=== PATIENT | female | born 1985 | race Caucasian/White ===

== ENCOUNTER 2016-10-07 16:21 | Inpatient (IN) | payer MEDICAID ==
[2016-10-07] VITALS (16 sets, daily range): BP systolic 101–117; BP diastolic 56–79; PULSE 70–102; RESP 18–20; TEMP 98–98.4
[~2016-10-07] VITALS: Ht 172.7 cm; Wt 79.4 kg
[~2016-10-07 16:21] MED LIST: MACR100C PO; PREN0.01 PO
[2016-10-07] MEDS ORDERED: SODIUM CHLORIDE 0.9% FLUSH 10 ML FLUSH IV FLUSH PRN (16:45)
[2016-10-07] MEDS ORDERED: ACETAMINOPHEN 325 MG TAB PO PRN (16:45)
[2016-10-07] MEDS ORDERED: ONDANSETRON ODT 4 MG TAB PO PRN (16:45)
[2016-10-07] MEDS ORDERED: ALUMINUM/MAGNESIUM/SIMETH 30 ML CUP PO PRN (16:45)
--- NOTE | 2016-10-07 17:02 | HHI.HP ---
HPI Chief Complaint 11/29 bpp Date Seen: Oct 07, 2016 Travel History International Travel<30 Days: No Contact w/Intl Traveler<30Days: No Known Affected Area: No History of Present Illness HPI 31 yo with iup at 38w2d with methadone use was seen in clinic today for testing. /bpp was 6/8 with points off for breathing. /nst was non- reactive. Pt endorses good movement. no lof/vb/reg ctx. Para: 2 : 4 : 1 History Past Medical History Narrative Medical methadone use for 3 years, prior opiate addiction started after initiation of pain management, then illegal drug use Obstetric History Obstetric History G1 09/21/10 FT iol for oligo, F, 6lb 6oz delivered at [facility] G2 02/08/13 35 wk delivery F, c/b gastroschisis, delivered at [facility] Past Surgical History Narrative Surgical tonsillectomy Family History Family History: Negative Social History Alcohol Use: No Tobacco Use: No Substance Abuse: Yes (prior opiate addiction, on methadone) Allergies-Medications (Allergen,Severity, Reaction): Coded Allergies: Penicillin (Verified Allergy, Severe, THROAT CLOSES, 02/28/03) Latex (Verified Allergy, Mild, Hives, 09/20/10) Uncoded Allergies: TOMATO (Allergy, Unknown, 02/28/03) Home Meds Active Scripts Nitrofurantoin Monohyd Macro (Macrobid)100 Mg [id number] Mg PO BID 7 Days Prov:Nelida Roque MD 03/23/16 Reported Medications Multivit/Min/Fol Ac/Iron/Pren ( Vit ( Plus)) Tab1 Tab PO DAILY 09/20/10 Review of Systems General / Constitutional: No: Fever, Weight Gain, Chills, Other Eyes: No: Diploplia, Blurred Vision, Visual changes, Pain, Photophobia HENT: No: Headaches, Vertigo, Lightheadedness Cardiovascular: No: Irregular Rhythm, Chest Pain or Discomfort, Palpitations, Tachycardia, Syncope, Varicosities, Edema, Cyanosis Respiratory: No: Cough, Short of Breath, Other Gastrointestinal: No: Nausea, Vomiting, Diarrhea Genitourinary: No: Decreased Urinary Output, Oliguria Musculoskeletal: No: Limited ROM, Weakness, Cramping, Edema, Pain Skin: No Rash, No Itching, No Dryness, No Lumps, No Change in Pigmentation, No Change in Nails, No Alopecia, No Lesions Neurologic: No: Weakness, Dizziness, Syncope, Focal Abnormalities, Coordination Problem, Headache, Slurred Speech, Seizures Psychiatric: No: Depression, Suicidal Ideations, Homicidal Ideation Endocrine: No: Heat Intolerance, Cold Intolerance, Polydipsia, Polyuria, Other Physical Exam Narrative GENERAL: Well-nourished, well-developed patient. SKIN: Warm and dry. HEAD: Normocephalic and atraumatic. EYES: No scleral icterus. No injection or drainage. ENT: No nasal drainage noted. Mucous membranes pink. Airway patent. NECK: Supple, trachea midline. No JVD. CARDIOVASCULAR: Regular rate and rhythm without murmurs, gallops, or rubs. RESPIRATORY: Breath sounds equal bilaterally. No accessory muscle use. ABDOMEN/GI: Abdomen soft, non-tender, bowel sounds present, no rebound, no guarding Gravid to 37 weeks size Fundal Height: 37 GENITOURINARY: External Genitalia: not performed in clinic today Presentation ceph Membranes: [intact Uterine Contractions: [-] FHT's: bpp 6/10, baseline 115, mod variability, no accelerations, no decelerations in office EXTREMITIES: No cyanosis or edema. BACK: Nontender without obvious deformity. No CVA tenderness. NEUROLOGICAL: Awake and alert. Motor and sensory grossly within normal limits. Five out of 5 muscle strength in all muscle groups. Normal speech. Data Data Vital Signs Reviewed: Yes Orders Place In Observation (10/07/16 ) Diet Regular Basic (10/07/16 Dinner) Vital Signs (Adult) LION.G4C-MBDBC AWAKE (10/07/16 16:37) Heart (10/07/16 16:37) Activity Bed Rest With Brp (10/07/16 16:37) Complete Blood Count With Diff (10/07/16 16:37) Basic Metabolic Panel (Bmp) (10/07/16 16:37) Hepatic Functional Panel (10/07/16 16:37) Lactated Ringer's 1000 Ml Inj (Lr 1000 M (10/07/16 16:37) Acetaminophen (Tylenol) (10/07/16 16:45) Ltouoiij-God-Pdbgo-Iron Prenat (Stuartna (10/08/16 09:00) Docusate Sodium (Colace) (10/08/16 09:00) Al-Mag Hy-Si 40-40-4 Mg/Ml Liq (Mag-Al P (10/07/16 16:45) Sodium Chloride 0.9% Flush (Ns Flush) (10/07/16 21:00) Sodium Chloride 0.9% Flush (Ns Flush) (10/07/16 16:45) Ondansetron Odt (Zofran Odt) (10/07/16 16:45) Ob/Psych Drug Screen, Urine (10/07/16 16:37) Hold Clot (10/07/16 16:37) Ferrous Sulfate (Ferrous Sulfate) (10/07/16 21:00) Assessment/Plan Assessment and Plan 31 yo with iup at 38w2d being admitted for extended monitoring s/ p non-reactive nst in office and 6/8 bpp (-2 for breathign). 1) NRFetal testing - bpp 6/10 in office, will admit for continuous monitoring. Will repeat bpp in the morning. If testing continues to be non-reassuring, will need iol. 2) /methadone use- pt did not disclose use until last week; initial uds positive for benzodiazepines,last uds positive methadone only. being seen in [facility] [place]. dose is 110mg daily, per pt 3)limited pnc- pt was not seen for 16 weeks (20wk to 36 wk) as she was in [place] with second child for medical issues.Her daughter was born with gastroschisis and has had several surgeries, and transplant. She was in pt at [facility] due to ileus, pneumonia, systemic yeast infection, and mild transplant rejection. 4) /udf - mirena pp 5) fetus- male, neg panorama screen, efw today 6 lb 10oz, ceph. Aicha Burton MD Oct 07, 2016 17:02 Aicha Burton MD Oct 07, 2016 17:02
[2016-10-07] MEDS: LACTATED RINGER'S 1000 ML INJ 1,000 ML IV SCH (17:36)
[2016-10-07 17:50] LABS: AMPHETAMINE, URINE NEG (NEG); BARBITURATES, URINE NEG (NEG); COCAINE, URINE NEG (NEG)
[2016-10-07 17:55] LABS: AUTOMATED NEUTROPHIL # 7.6 TH/MM3 (1.8-7.7); BASOPHIL % 0.2 % (0.0-2.0); EOSINOPHIL # 0.1 TH/MM3 (0-0.4); EOSINOPHIL % 0.7 % (0.0-4.0); HEMATOCRIT 31.6 % (35.0-46.0); HEMO FLAGS DIFF FINAL; LYMPH % 27.1 % (9.0-44.0); LYMPHOCYTE # 3.1 TH/MM3 (1.0-4.8); MEAN CELL VOLUME 81.7 FL (80.0-100.0); MEAN CORPUSCULAR HEMOGLOBIN 27.3 PG (27.0-34.0); MEAN CORPUSCULAR HGB CONC 33.4 % (32.0-36.0); MONO % 6.1 % (0.0-8.0); NEUT % 65.9 % (16.0-70.0); PLATELET COUNT 253 TH/MM3 (150-450); RED BLOOD COUNT 3.87 MIL/MM3 (4.00-5.30); RED CELL DISTRIBUTION WIDTH 13.6 % (11.6-17.2); WHITE BLOOD COUNT 11.5 TH/MM3 (4.0-11.0)
[2016-10-07] MEDS ORDERED: SODIUM CHLORIDE 0.9% FLUSH 10 ML FLUSH IV FLUSH SCH (21:00)
[2016-10-07 21:10] LABS: BICARBONATE 28.3 MEQ/L (21.0-32.0); INDIRECT BILIRUBIN 0.2 MG/DL (0.0-0.8); POTASSIUM 3.6 MEQ/L (3.5-5.1); TOTAL BILIRUBIN ADULT 0.3 MG/DL (0.2-1.0)
[2016-10-08] VITALS (144 sets, daily range): BP systolic 107–140; BP diastolic 56–111; PULSE 62–231; RESP 16–18; TEMP 97.4–98.3; O2SAT 99–100
[2016-10-08] MEDS: FERROUS SULFATE 325 MG (65 MG ELEMENTAL IRON) TAB PO SCH (08:39)
[2016-10-08] MEDS: DOCUSATE SODIUM 100 MG CAP PO SCH (08:39)
[2016-10-08] MEDS: MULTIVIT/MIN/PREN/FOL AC/IRON PRENATAL TAB PO SCH (08:40)
[2016-10-08] MEDS ORDERED: METHADONE HCL 10 MG TAB PO SCH (09:00)
--- NOTE | 2016-10-08 11:57 | PD.OB.ANTE ---
Subjective Interval History Chart reviewed have not met before today 39 weeks with one child with gastroschisis. Recently disclosed methadone use through [facility]. BPP in our office yesterday was 11/27 and then 01/27 today in [facility] Hep C status etc not known. Objective Vital Signs Vital Signs Date Time Temp Pulse Resp B/P Pulse Ox O2 Delivery O2 Flow Rate FiO2 10/08/16 11:10 72 10/08/16 11:05 71 10/08/16 11:00 71 10/08/16 10:55 74 10/08/16 10:50 80 10/08/16 10:45 80 10/08/16 10:40 81 10/08/16 10:35 81 10/08/16 10:30 83 10/08/16 10:25 83 10/08/16 10:20 78 10/08/16 10:15 78 10/08/16 10:10 81 10/08/16 10:05 85 100 10/08/16 10:05 84 10/08/16 10:00 78 100 10/08/16 10:00 77 10/08/16 09:55 82 100 10/08/16 09:55 83 10/08/16 09:50 77 10/08/16 09:50 77 99 10/08/16 09:45 83 100 10/08/16 09:45 82 10/08/16 09:40 83 10/08/16 09:40 82 100 10/08/16 09:35 77 100 10/08/16 09:35 78 10/08/16 09:30 81 100 10/08/16 09:30 80 10/08/16 09:25 80 10/08/16 09:20 83 10/08/16 09:15 76 10/08/16 09:00 77 10/08/16 08:55 72 10/08/16 08:50 94 10/08/16 08:45 84 10/08/16 08:35 65 10/08/16 08:25 67 10/08/16 08:20 75 10/08/16 07:44 97.5 10/08/16 07:43 16 10/08/16 07:42 66 115/63 10/08/16 07:40 63 10/08/16 07:35 65 10/08/16 07:30 67 10/08/16 07:25 63 10/08/16 07:20 63 10/08/16 07:15 65 10/08/16 07:10 72 10/08/16 07:05 62 10/08/16 07:00 66 10/08/16 05:55 73 10/08/16 04:55 77 10/08/16 03:55 75 10/08/16 03:50 16 10/08/16 03:45 79 10/08/16 02:55 74 10/08/16 02:00 18 10/08/16 01:55 82 10/08/16 00:55 82 10/07/16 23:55 72 10/07/16 23:51 98.4 10/07/16 23:51 18 10/07/16 23:51 70 101/56 10/07/16 23:50 72 10/07/16 22:55 76 10/07/16 21:56 18 10/07/16 21:55 77 10/07/16 20:55 71 10/07/16 19:55 76 10/07/16 19:33 80 104/60 10/07/16 19:32 98.0 18 10/07/16 19:30 77 10/07/16 18:55 78 10/07/16 17:55 82 10/07/16 16:58 20 10/07/16 16:58 98.3 10/07/16 16:57 89 117/79 10/07/16 16:55 102 Lab & Micro Results Test 10/07/16 10/07/16 10/07/16 16:30 17:35 20:18 Urine Opiates Screen NEG Urine Barbiturates Screen NEG Urine Amphetamines Screen NEG Urine Benzodiazepines Screen NEG Urine Cocaine Screen NEG Urine Cannabinoids Screen NEG White Blood Count 11.5 TH/MM3 Red Blood Count 3.87 MIL/MM3 Hemoglobin 10.5 GM/DL Hematocrit 31.6 % Mean Corpuscular Volume 81.7 FL Mean Corpuscular Hemoglobin 27.3 PG Mean Corpuscular Hemoglobin 33.4 % Concent Red Cell Distribution Width 13.6 % Platelet Count 253 TH/MM3 Mean Platelet Volume 8.7 FL Neutrophils (%) (Auto) 65.9 % Lymphocytes (%) (Auto) 27.1 % Monocytes (%) (Auto) 6.1 % Eosinophils (%) (Auto) 0.7 % Basophils (%) (Auto) 0.2 % Neutrophils # (Auto) 7.6 TH/MM3 Lymphocytes # (Auto) 3.1 TH/MM3 Monocytes # (Auto) 0.7 TH/MM3 Eosinophils # (Auto) 0.1 TH/MM3 Basophils # (Auto) 0.0 TH/MM3 CBC Comment DIFF FINAL Differential Comment Band and Hold HOLD CLOT IN BB Sodium Level 137 MEQ/L Potassium Level 3.6 MEQ/L Chloride Level 101 MEQ/L Carbon Dioxide Level 28.3 MEQ/L Anion Gap 8 MEQ/L Blood Urea Nitrogen 8 MG/DL Creatinine 0.77 MG/DL Estimat Glomerular Filtration 89 ML/MIN Rate Random Glucose 92 MG/DL Calcium Level 9.0 MG/DL Total Bilirubin 0.3 MG/DL Direct Bilirubin 0.1 MG/DL Indirect Bilirubin 0.2 MG/DL Aspartate Amino Transf 14 U/L (AST/SGOT) Alanine Aminotransferase 17 U/L (ALT/SGPT) Alkaline Phosphatase 238 U/L Total Protein 5.8 GM/DL Albumin 2.2 GM/DL Physical Exam GENERAL: Well-nourished, well-developed patient. CARDIOVASCULAR: Regular rate and rhythm without murmurs, gallops, or rubs. RESPIRATORY: Breath sounds equal bilaterally. No accessory muscle use. ABDOMEN/GI: Abdomen soft, non-tender. term 4/80/posterior and to patient's left EFW 7 pelvis clinically adequate EXTREMITIES: No cyanosis or edema, non-tender, without signs of DVT. Assessment and Plan Assessment and Plan 31 yo with iup at term with risk factors of intermitten care and methadone use (110 mg daily) strip reactive today however, concerns about premature again of placenta, abruptio and oligo question the rationale of conservative management and recommend delivery today. AROM and pitocin/epidural as needed Ketty Smith MD Oct 08, 2016 11:57 Assessment and Plan Assessment and Plan 31 yo with iup at term with risk factors of intermitten care and methadone use (110 mg daily) strip reactive today however, concerns about premature again of placenta, abruptio and oligo question the rationale of conservative management and recommend delivery today. Ketty Smith MD Oct 08, 2016 11:57
[2016-10-08] MEDS: LACTATED RINGER'S 1000 ML INJ 1,000 ML IV SCH (12:45)
--- NOTE | 2016-10-08 12:54 | PD.LABORPN ---
Subjective Subjective mild contactions having mild contractions every 3-5 minutes no leaking or bleeding Objective Vital Signs Vital Signs Date Time Temp Pulse Resp B/P Pulse Ox O2 Delivery O2 Flow Rate FiO2 10/08/16 12:45 82 10/08/16 12:44 76 137/72 10/08/16 12:40 87 10/08/16 12:35 94 10/08/16 12:33 18 10/08/16 12:30 90 10/08/16 12:15 100 10/08/16 12:10 86 10/08/16 12:05 84 10/08/16 12:00 69 10/08/16 11:50 77 10/08/16 11:45 80 10/08/16 11:40 75 10/08/16 11:35 73 10/08/16 11:30 77 10/08/16 11:25 77 10/08/16 11:20 73 10/08/16 11:15 78 10/08/16 11:10 72 10/08/16 11:05 71 10/08/16 11:00 71 10/08/16 10:55 74 10/08/16 10:50 80 10/08/16 10:45 80 10/08/16 10:40 81 10/08/16 10:35 81 10/08/16 10:30 83 10/08/16 10:25 83 10/08/16 10:20 78 10/08/16 10:15 78 10/08/16 10:10 81 10/08/16 10:05 85 100 10/08/16 10:05 84 10/08/16 10:00 78 100 10/08/16 10:00 77 10/08/16 09:55 82 100 10/08/16 09:55 83 10/08/16 09:50 77 10/08/16 09:50 77 99 10/08/16 09:45 83 100 10/08/16 09:45 82 10/08/16 09:40 83 10/08/16 09:40 82 100 10/08/16 09:35 77 100 10/08/16 09:35 78 10/08/16 09:30 81 100 10/08/16 09:30 80 10/08/16 09:25 80 10/08/16 09:20 83 10/08/16 09:15 76 10/08/16 09:00 77 10/08/16 08:55 72 10/08/16 08:50 94 10/08/16 08:45 84 10/08/16 08:35 65 10/08/16 08:25 67 10/08/16 08:20 75 10/08/16 07:44 97.5 10/08/16 07:43 16 10/08/16 07:42 66 115/63 10/08/16 07:40 63 10/08/16 07:35 65 10/08/16 07:30 67 10/08/16 07:25 63 10/08/16 07:20 63 10/08/16 07:15 65 10/08/16 07:10 72 10/08/16 07:05 62 10/08/16 07:00 66 10/08/16 05:55 73 10/08/16 04:55 77 Objective 5/80/posterior arom category 1 Assessment/Plan Assessment and Plan anticipate delivery maintain methadone dose notify NICU Ketty Smith MD Oct 08, 2016 12:54
[2016-10-08] MEDS ORDERED: OXYTOCIN 30 UNITS/NS 500ML PREMIX IV SCH (13:15)
[2016-10-08] MEDS ORDERED: NS 1000 ML IV PRN (13:30)
[2016-10-08] MEDS ORDERED: MINERAL OIL 10 ML VIAL TOPICAL PRN (13:30)
[2016-10-08] MEDS ORDERED: LACTATED RINGER'S 1000 ML BOLUS IV PRN (13:30)
[2016-10-08] MEDS ORDERED: NS 500 ML BOLUS IV PRN (13:30)
[2016-10-08] MEDS ORDERED: LIDOCAINE HCL 1% 50 ML VIAL I-DERMAL PRN (13:30)
[2016-10-08] MEDS ORDERED: ONDANSETRON HCL 4 MG/2 ML VIAL IV PRN (13:30)
[2016-10-08] MEDS ORDERED: OXYTOCIN 30 UNITS 500ML PREMIX IV ONE (13:30)
[2016-10-08] MEDS ORDERED: CITRIC ACID-SODIUM CITRATE LIQ 30 ML UDC PO SCH (13:30)
[2016-10-08] MEDS ORDERED: LIDOCAINE HCL 1% 50 ML VIAL INFIL PRN (13:30)
[2016-10-08] MEDS ORDERED: MEASLES, MUMPS, RUBELLA VACCINE 0.5 ML VIAL SQ ONE (16:00)
[2016-10-08] MEDS ORDERED: DIPHTH/TETANUS/ACEL PERTUSSIS (BOOSTER) 0.5 ML VIAL/PFS IM ONE (16:00)
[2016-10-08] MEDS ORDERED: fentaNYL 2MCG-BUPIV 0.125% INJ 100 ML ONE (17:59)
[2016-10-08] MEDS: LACTATED RINGER'S 1000 ML IV SCH ×2 (18:38→21:30)
[2016-10-08] MEDS ORDERED: NO SYSTEM NARCOTICS PRN (19:30)
[2016-10-08] MEDS ORDERED: ePHEDrine/NS 25 MG/5 ML SYR IV PRN (19:30)
[2016-10-08] MEDS ORDERED: DO NOT ADMINISTER ANTICOAGULANTS PRN (19:30)
[2016-10-08] MEDS ORDERED: fentaNYL 2MCG-BUPIV 0.125% 100 ML EPIDURAL SCH (19:30)
--- NOTE | 2016-10-08 21:39 | PD.OB.DELI ---
Anesthesia: Epidural Episiotomy: None Vaginal Delivery: Normal Presentation: Occiput anterior Nuchal Cord: x1 Delayed cord clamping (45 sec): Yes : Male One Minute : 9 Five Minute : 9 Weight: 7 Placenta: Spontaneous delivery Laceration: No lacerations Ketty Smith MD Oct 08, 2016 21:39
[2016-10-08] MEDS ORDERED: ZOLPIDEM TARTRATE 5 MG TAB PO PRN (21:45)
[2016-10-08] MEDS ORDERED: ONDANSETRON ODT 4 MG TAB PO PRN (21:45)
[2016-10-08] MEDS ORDERED: SODIUM CHLORIDE 0.9% FLUSH 10 ML FLUSH IV FLUSH PRN (21:45)
[2016-10-08] MEDS ORDERED: WITCH HAZEL 50%/GLYCERIN 12.5% 40 PAD JAR TOPICAL PRN (21:45)
[2016-10-08] MEDS ORDERED: BENZOCAINE 20% TOPICAL SPRAY 60 ML CAN TOPICAL PRN (21:45)
[2016-10-08] MEDS ORDERED: DOCUSATE SODIUM 50 MG/SENNA 8.6 MG TAB PO PRN (21:45)
[2016-10-08] MEDS ORDERED: ALUMINUM/MAGNESIUM/SIMETH 30 ML CUP PO PRN (21:45)
[2016-10-08] MEDS: IBUPROFEN 600 MG TAB PO PRN (22:12)
[2016-10-09 00:07] VITALS: BP 114/97; PULSE 85
[2016-10-09 00:14] VITALS: RESP 18
[2016-10-09] MEDS: ACETAMINOPHEN 325 MG TAB PO PRN ×4 (02:33→19:15)
[2016-10-09] MEDS ORDERED: METHADONE HCL 10 MG TAB PO ONE (06:00)
[2016-10-09] MEDS: IBUPROFEN 600 MG TAB PO PRN ×3 (06:13→19:15)
[2016-10-09 08:05] VITALS: BP 121/82; PULSE 70; RESP 18; TEMP 98.1
[2016-10-09] MEDS: MULTIVIT/MIN/PREN/FOL AC/IRON PRENATAL TAB PO SCH (08:14)
[2016-10-09] MEDS: DOCUSATE SODIUM 100 MG CAP PO SCH (08:14)
[2016-10-09] MEDS: FERROUS SULFATE 325 MG (65 MG ELEMENTAL IRON) TAB PO SCH ×2 (08:14→20:06)
[2016-10-09] MEDS ORDERED: SODIUM CHLORIDE 0.9% FLUSH 10 ML FLUSH IV FLUSH SCH (09:00)
[2016-10-09] MEDS: LACTATED RINGER'S 1000 ML INJ 1,000 ML IV SCH ×2 (09:00→13:58)
--- NOTE | 2016-10-09 09:21 | HHI.OB ---
Subjective Post Day: 1 Remarks doing well. PT has no complaints. had lower methadone dose this morning. breast feeding. Baby doing well so far Objective Vitals/I&O Vital Signs Date Time Temp Pulse Resp B/P Pulse Ox O2 Delivery O2 Flow Rate FiO2 10/09/16 00:14 18 10/09/16 00:07 85 114/97 10/08/16 23:15 18 10/08/16 23:12 18 10/08/16 23:00 85 120/75 10/08/16 22:51 18 10/08/16 22:46 75 119/67 10/08/16 22:37 18 10/08/16 22:30 173 110/66 10/08/16 22:17 81 107/56 10/08/16 22:15 18 10/08/16 22:15 140/101 10/08/16 22:04 92 124/76 10/08/16 22:00 83 121/70 10/08/16 22:00 18 10/08/16 21:58 98.2 10/08/16 21:57 18 10/08/16 21:45 84 113/57 10/08/16 21:41 92 110/86 10/08/16 21:10 91 10/08/16 21:10 90 10/08/16 21:08 18 10/08/16 21:05 104 10/08/16 21:05 101 10/08/16 21:00 89 10/08/16 21:00 79 117/69 10/08/16 20:50 76 10/08/16 20:50 77 10/08/16 20:45 77 10/08/16 20:45 82 114/63 10/08/16 20:45 80 10/08/16 20:30 94 118/66 10/08/16 20:30 91 10/08/16 20:30 76 10/08/16 20:05 79 10/08/16 20:05 82 10/08/16 20:04 18 10/08/16 20:00 80 121/76 10/08/16 20:00 91 10/08/16 20:00 75 10/08/16 19:34 18 10/08/16 19:30 73 107/66 10/08/16 19:30 105 10/08/16 19:11 97.6 18 4/19/17 19:10 71 19/17 19:10 78 19/17 19:05 231 17 19:00 83 17 19:00 88 116/74 17 18:45 77 10/08/17 18:45 79 17 18:45 76 123/61 19/17 18:40 89 128/75 19/17 18:40 93 17 18:40 79 17 18:35 84 17 18:35 80 17 18:35 78 122/79 10/08/17 18:30 76 17 18:30 82 118/60 17 18:25 88 126/66 17 18:25 77 17 18:25 88 17 18:20 83 127/111 17 18:20 131 17 18:15 83 113/67 17 18:15 89 17 18:15 83 17 18:10 79 17 18:10 93 129/70 10/08/17 18:05 86 17 18:05 94 123/67 17 18:00 90 17 18:00 88 113/68 17 18:00 98 17 17:55 91 17 17:55 91 135/88 17 17:41 79 125/81 1917 17:40 75 17 17:35 79 17 17:15 97.4 17 17:10 74 10/08/17 17:09 87 122/105 1917 17:00 73 1917 16:30 127/74 19/17 16:20 74 10/08/17 16:17 75 121/73 19/17 16:15 68 121/73 10/08/17 16:15 74 10/08/17 16:10 69 19/17 15:57 78 107/67 19/17 15:55 78 19/17 15:45 88 4/19/17 15:40 97 4/19/17 15:19 85 10/08/16 15:15 97.5 10/08/16 15:15 130/88 10/08/16 15:00 89 10/08/16 14:55 80 10/08/16 14:36 81 129/76 10/08/16 14:30 132 10/08/16 14:20 87 10/08/16 14:12 87 126/71 10/08/16 14:10 86 10/08/16 14:05 89 10/08/16 14:00 83 10/08/16 13:55 104 10/08/16 13:40 90 10/08/16 13:25 89 10/08/16 13:22 98.3 88 18 124/70 10/08/16 12:55 92 10/08/16 12:50 87 10/08/16 12:45 82 10/08/16 12:44 76 137/72 10/08/16 12:40 87 10/08/16 12:35 94 10/08/16 12:33 18 10/08/16 12:30 90 10/08/16 12:15 100 10/08/16 12:10 86 10/08/16 12:05 84 10/08/16 12:00 69 10/08/16 11:50 77 10/08/16 11:45 80 10/08/16 11:40 75 10/08/16 11:35 73 10/08/16 11:30 77 10/08/16 11:25 77 10/08/16 11:20 73 10/08/16 11:15 78 10/08/16 11:10 72 10/08/16 11:05 71 10/08/16 11:00 71 10/08/16 10:55 74 10/08/16 10:50 80 10/08/16 10:45 80 10/08/16 10:40 81 10/08/16 10:35 81 10/08/16 10:30 83 10/08/16 10:25 83 10/08/16 10:20 78 10/08/16 10:15 78 10/08/16 10:10 81 10/08/16 10:05 85 100 10/08/16 10:05 84 10/08/16 10:00 78 100 10/08/16 10:00 77 10/08/16 09:55 82 100 10/08/16 09:55 83 10/08/16 09:50 77 10/08/16 09:50 77 99 10/08/16 09:45 83 100 10/08/16 09:45 82 10/08/16 09:40 83 10/08/16 09:40 82 100 10/08/16 09:35 77 100 10/08/16 09:35 78 10/08/16 09:30 81 100 10/08/16 09:30 80 10/08/16 09:25 80 Objective Remarks GENERAL: Well-nourished, well-developed patient. CARDIOVASCULAR: Regular rate and rhythm without murmurs, gallops, or rubs. RESPIRATORY: Breath sounds equal bilaterally. No accessory muscle use. ABDOMEN/GI: Abdomen soft, non-tender. Fundus: Firm, non-tender at umbilicus. GENITOURINARY: Light to moderate bleeding. EXTREMITIES: No cyanosis or edema, non-tender, without signs of DVT. Medications and IVs Current Medications Medications (Trade) Dose Ordered Sig/Adrien Route Start Time Stop Time Status Last Admin (Lr 1000 ml Inj) 1,000 ml @ 100 mls/hr Q10H IV 10/07/16 17:00 10/08/16 12:45 (Stuartnatal Plus 3 ) 1 tab DAILY PO 10/08/16 09:00 10/09/16 08:14 (Colace) 100 mg DAILY PO 10/08/16 09:00 10/09/16 08:14 Ferrous Sulfate 325 mg 325 mg BID PO 10/07/16 21:00 10/09/16 08:14 Oxytocin 500 ml @ 0 mls/hr TITRATE IV 10/08/16 13:15 10/08/16 13:24 Lactated Ringer's 1,000 ml @ 125 mls/hr Q8H IV 10/08/16 13:30 10/08/16 18:38 Lactated Ringer's 1,000 ml @ 3,000 mls/hr BOLUS PRN IV 10/08/16 13:30 10/08/16 18:37 Sodium Chloride 500 ml @ 1,000 mls/hr BOLUS PRN IV 10/08/16 13:30 (NS 1000 ml Inj) 1,000 ml @ 100 mls/hr Q10H PRN IV 10/08/16 13:30 (Zofran Inj) 4 mg Q6H PRN IV 10/08/16 13:30 (fentaNYL INJ) 50 mcg Q1H PRN IV PUSH 10/08/16 13:30 (fentaNYL INJ) 100 mcg Q1H PRN IV PUSH 10/08/16 13:30 10/08/16 17:10 (Muri-Lube Oil) 10 ml UNSCH PRN TOPICAL 10/08/16 13:30 Miscellaneous Information No systemic narcotics to be given except... UNSCH PRN .XX 10/08/16 19:30 10/09/16 19:29 Miscellaneous Information DO NOT ADMINISTER ANY ANTICOAGUL... UNSCH PRN .XX 10/08/16 19:30 10/09/16 19:29 (fentaNYL 2MCG-BUPIV 0.125% INJ) 100 ml @ 0 mls/hr TITRATE EPIDURAL 10/08/16 19:30 (ePHEDrine/NS 25 MG/5 ML SYR) 10 mg UNSCH PRN IV 10/08/16 19:30 10/09/16 19:29 (NS Flush) 2 ml BID IV FLUSH 10/09/16 09:00 (NS Flush) 2 ml UNSCH PRN IV FLUSH 10/08/16 21:45 (Tylenol) 650 mg Q4H PRN PO 10/08/16 21:45 10/09/16 08:13 (Motrin) 600 mg Q6H PRN PO 10/08/16 21:45 10/09/16 06:13 (Americaine 20% Top Spr) 1 spray Q4H PRN TOPICAL 10/08/16 21:45 10/09/16 02:34 (Tucks Pads) 1 applic QID PRN TOPICAL 10/08/16 21:45 10/09/16 02:34 ([place]-Colace) 2 tab Q12H PRN PO 10/08/16 21:45 (Ambien) 5 mg HS PRN PO 10/08/16 21:45 (Mag-Al Plus Susp Liq) 15 ml Q8H PRN PO 10/08/16 21:45 (Zofran Odt) 4 mg Q6H PRN PO 10/08/16 21:45 Assessment/Plan Assessment and Plan 31 yo s/p 1) ppd1 cont routine care 2) Methadone use- 100mg this am Aicha Burton MD Oct 09, 2016 09:21
--- NOTE | 2016-10-09 09:22 | HHI.DCPOC ---
Discharge Care Plan Diagnosis: (1) (spontaneous vaginal delivery) (2) Methadone dependence Your Health Problems Are: Vaginal delivery Report Symptoms to Your Doctor -Temperate above 100.5 degrees -Redness, of incision or excessive or foul smelling drainage -Unusual pain or calf pain -Increased vaginal bleeding -Painful or difficulty urinating -Feelings of extreme sadness or anxiety after 2 weeks Goals to Promote Your Health * To prevent worsening of your condition and complications * To maintain your health at the optimal level Directions to Meet Your Goals Take your medications as prescribed Follow your dietary instruction Follow activity as directed Ensure plenty of rest for recovery Drink fluids for hydration Keep your appointments as scheduled Take your immunizations and boosters as scheduled If your symptoms worsen call your PCP, if no PCP go to Urgent Care Center or Emergency Room Smoking is Dangerous to Your Health. Avoid second hand smoke Call the 24-hour crisis hotline for domestic abuse at Aicha Burton MD Oct 09, 2016 09:22
[2016-10-09] MEDS ORDERED: IBUP-232 PO (09:23)
[2016-10-09] MEDS: LACTATED RINGER'S 1000 ML IV SCH (13:30)
[2016-10-09 19:18] VITALS: BP 114/70; PULSE 80; RESP 18; TEMP 98.5
[2016-10-10] MEDS: IBUPROFEN 600 MG TAB PO PRN ×2 (02:21→08:22)
[2016-10-10] MEDS: ACETAMINOPHEN 325 MG TAB PO PRN ×2 (02:21→08:21)
[2016-10-10] MEDS ORDERED: METHADONE HCL 10 MG TAB PO ONE (06:00)
--- NOTE | 2016-10-10 07:28 | HHI.OB ---
Subjective Post Day: 2 Remarks Doing well Pain and bleeding are ok Baby went to the NICU last nite, due to methadone use antepartum Objective Vitals/I&O Vital Signs Date Time Temp Pulse Resp B/P Pulse Ox O2 Delivery O2 Flow Rate FiO2 10/10/16 03:21 18 10/09/16 20:15 16 10/09/16 19:18 98.5 80 18 114/70 10/09/16 08:05 98.1 70 18 121/82 Objective Remarks GENERAL: Well-nourished, well-developed patient. CARDIOVASCULAR: Regular rate and rhythm without murmurs, gallops, or rubs. RESPIRATORY: Breath sounds equal bilaterally. No accessory muscle use. ABDOMEN/GI: Abdomen soft, non-tender. Fundus: Firm, non-tender at umbilicus. GENITOURINARY: Light to moderate bleeding. EXTREMITIES: No cyanosis or edema, non-tender, without signs of DVT. Medications and IVs Current Medications Medications (Trade) Dose Ordered Sig/Adrien Route Start Time Stop Time Status Last Admin (Lr 1000 ml Inj) 1,000 ml @ 100 mls/hr Q10H IV 10/07/16 17:00 10/08/16 12:45 (Stuartnatal Plus 3 ) 1 tab DAILY PO 10/08/16 09:00 10/09/16 08:14 (Colace) 100 mg DAILY PO 10/08/16 09:00 10/09/16 08:14 Ferrous Sulfate 325 mg 325 mg BID PO 10/07/16 21:00 10/09/16 20:06 Oxytocin 500 ml @ 0 mls/hr TITRATE IV 10/08/16 13:15 10/08/16 13:24 Lactated Ringer's 1,000 ml @ 125 mls/hr Q8H IV 10/08/16 13:30 10/08/16 18:38 Lactated Ringer's 1,000 ml @ 3,000 mls/hr BOLUS PRN IV 10/08/16 13:30 10/08/16 18:37 Sodium Chloride 500 ml @ 1,000 mls/hr BOLUS PRN IV 10/08/16 13:30 (NS 1000 ml Inj) 1,000 ml @ 100 mls/hr Q10H PRN IV 10/08/16 13:30 (Zofran Inj) 4 mg Q6H PRN IV 10/08/16 13:30 (fentaNYL INJ) 50 mcg Q1H PRN IV PUSH 10/08/16 13:30 (fentaNYL INJ) 100 mcg Q1H PRN IV PUSH 10/08/16 13:30 10/08/16 17:10 Mineral Oil 10 ml 10 ml UNSCH PRN TOPICAL 10/08/16 13:30 (fentaNYL 2MCG-BUPIV 0.125% INJ) 100 ml @ 0 mls/hr TITRATE EPIDURAL 10/08/16 19:30 (NS Flush) 2 ml BID IV FLUSH 10/09/16 09:00 (NS Flush) 2 ml UNSCH PRN IV FLUSH 10/08/16 21:45 (Tylenol) 650 mg Q4H PRN PO 10/08/16 21:45 10/10/16 02:21 (Motrin) 600 mg Q6H PRN PO 10/08/16 21:45 10/10/16 02:21 (Americaine 20% Top Spr) 1 spray Q4H PRN TOPICAL 10/08/16 21:45 10/09/16 02:34 (Tucks Pads) 1 applic QID PRN TOPICAL 10/08/16 21:45 10/09/16 02:34 ([place]-Colace) 2 tab Q12H PRN PO 10/08/16 21:45 (Ambien) 5 mg HS PRN PO 10/08/16 21:45 (Mag-Al Plus Susp Liq) 15 ml Q8H PRN PO 10/08/16 21:45 (Zofran Odt) 4 mg Q6H PRN PO 10/08/16 21:45 Assessment/Plan Assessment and Plan PPD #2 Doing well Baby in NICU Will try to get stay close quarters Roberto Guardado MD Oct 10, 2016 07:28
[2016-10-10] MEDS: MULTIVIT/MIN/PREN/FOL AC/IRON PRENATAL TAB PO SCH (08:21)
[2016-10-10] MEDS: FERROUS SULFATE 325 MG (65 MG ELEMENTAL IRON) TAB PO SCH (08:21)
[2016-10-10] MEDS: DOCUSATE SODIUM 100 MG CAP PO SCH (08:21)
[2016-10-10 08:30] VITALS: BP 116/81; PULSE 80; RESP 20; TEMP 97.6
[2016-10-11 19:27] LABS: HEROIN (6-ACETYLMORPHINE) UR NEG (NEG); PHENCYCLIDINE URINE NEG (NEG)
[2016-10-11 19:28] LABS: BATH SALTS (MDPV) UR NEG (NEG); ECSTASY (MDMA) UR NEG (NEG); K2 SPICE UR NEG (NEG); OXYCODONE (PERCODAN) NEG (NEG)
[2016-10-11 19:29] LABS: GABAPENTIN UR NEG (NEG); HYDROMORPHONE U NEG (NEG)
[2016-10-11 19:33] LABS: OBMETHADONE UR POS (NEG)
== END 2016-10-10 11:35 | disposition home or self-care (01) | DRG 775 ==
LOC: H2EA 16:21 → OBSVTOIN 10-08 13:11 → H1EA 10-09 00:16
PROVIDERS: ADMIT Obstetrics & Gynecology; ATTEND Obstetrics & Gynecology
PROC: 10E0XZZ Delivery of Products of Conception, External Approach (ICD-10-PCS; principal; 2016-10-08)
PROC: 10907ZC Drainage of Amniotic Fluid, Therapeutic from Products of Conception, Via Natural or Artificial Opening (ICD-10-PCS; 2016-10-08)
PROC: 4A1HX4Z Monitoring of Products of Conception, Cardiac Electrical Activity, External Approach (ICD-10-PCS; 2016-10-08)
PROC: 3E0S3CZ (ICD-10-PCS; 2016-10-08)
PROC: 00HU33Z Insertion of Infusion Device into Spinal Canal, Percutaneous Approach (ICD-10-PCS; 2016-10-08)
DX: O26.893 Other specified pregnancy related conditions, third trimester (principal); F11.90 Opioid use, unspecified, uncomplicated; O99.323 Drug use complicating pregnancy, third trimester; Z3A.38 38 weeks gestation of pregnancy; Z37.0 Single live birth
CPT/HCPCS: 59025; 76816; 76819; 80048; 80076; 80307; 80348; 85025; 86900; 86901; 90715; G0378; G0480; G0481; J2590; J3010; J7120